=== PATIENT | female | born 1995 | race Native Hawaiian/Other Pacific Islander ===

== ENCOUNTER 2019-06-13 06:14 | Inpatient (IN) | payer OTHER ==
[~2019-06-13] VITALS: Ht 165.1 cm; Wt 115.3 kg
[2019-06-13] VITALS (77 sets, daily range): BP systolic 94–193; BP diastolic 47–99
[2019-06-13] MEDS ORDERED: PRENTAB9 PO (06:29)
[2019-06-13] MEDS ORDERED: LR 1,000 ML IV SCH ×2 (07:00→22:13)
[2019-06-13] MEDS ORDERED: LACTATED RINGER'S 1000 ML IV STA (07:00)
[2019-06-13 07:17] LABS: HEMATOCRIT 38.3 % (36.0-47.0); HEMOGLOBIN 12.9 g/dl (12.0-15.5); MEAN CORPUSCULAR HEMOGLOBIN 27.7 pg (27.0-33.0); MEAN CORPUSCULAR HGB CONC 33.7 g/dl (32.0-36.5); MEAN CORPUSCULAR VOLUME 82.4 fl (80.0-96.0); PLATELET COUNT, AUTOMATED 286 10^3/uL (150-450); RED BLOOD COUNT 4.65 10^6/uL (4.00-5.40); WHITE BLOOD COUNT 12.5 10^3/uL (4.0-10.0)
--- NOTE | 2019-06-13 07:33 | HPEPDOC ---
Obstetrical History & Physical General Date of Admission 06/13/19 Primary Care Physician: Ashlyn Sofia MD History of Present Illness Ob Considerations: Transfer from [facility] at 36 weeks Obesity BMI 37 23y/o G1 @ 39+3 wks by LMP c/w 1T US (ISABELLA [id number]) presents in labor. Patient endorses pink tinged vaginal discharge and painful contractions q2-3 minutes. She denies LOF and endorses active movement. 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: No pertinent history Past Medical History Medical History Denies Surgical History: Denies/None Family History Significant Family History: Cancer (Breast and uterine cancer), Diabetes, Heart disease, Hypertension Social History Marital Status: Family situation: Spouse/partner home Psychosocial History: No pertinent psych hx * Smoker: non-smoker Alcohol: Denies Drugs: denies Abuse Violence Screening Have you been hit/kicked/slapp: No Have you been sexually assault: No Imunizations Tdap status: current Influenza Status: needs Allergies Coded Allergies: No Known Allergies (Verified Allergy, Unknown, 06/13/19) Medications Scheduled No.137/Iron/Folic Acd ( Vitamin Tablet) 1 Each Tablet, 1 TAB PO DAILY Physical Examination Physical Examination GENERAL: Alert and oriented times three. BREAST: . ABDOMEN: Gravid and non-tender to touch. FETUS: Is vertex (VTX) by sterile vaginal examination (SVE), fetus is vertex (VTX) by Arpan. EFW 3800g HEART RATE: Regular rate and rhythm. LUNGS: Clear to auscultation (CTA). EXTREMITIES: No edema. Vital Signs/I&O Vital Signs Date Time Temp Pulse Resp B/P (MAP) Pulse Ox O2 Delivery O2 Flow Rate FiO2 06/13/19 06:49 71 153/97 (115) 06/13/19 06:37 97.8 Pertinent Laboratoy Data Blood Type: A+ RBC Antibody Screen: Negative HIV: Negative Hepatitis B: Negative Hepatitis C: Unknown Rapid Plasma Reagin: Nonreactive Rubella: Immune Varicella: Immune Chlamydia/Gonorrhea: Negative Group B Streptococcus: Negative Cystic Fibrosis: Negative Glucose Tolerance Test: 122 Other Ultrasounds Growth US [id number] EFW 2179g Posterior placenta, no previa. Steroid Therapy Steroid Therapy: No Vaginal Examination Dilation: 5 cm Effacement: 90% Station: -1 Cervical Consistency: Soft Cervical Position: Middle Presentation: Cephalic presentation Position: Vertex (occiput) Assessment Heart Rate (FHR): 135 Variability: Moderate Accelerations: Positive Decelerations: None Tocometer Contractions: Yes Frequency: regular, every 2-5 min. Duration: greater than 60 seconds Strength: palpated as moderate, palpated as strong Multi-drug resistant Organism: No history of MDRO Assessment/Plan Assessment 23-year-old (G)1 para (P)0 @ 39+3 wks by LMP c/w 9 wk US (ISABELLA [id number]) admitted for labor. EFW 3800g. Patient with Mild range Bps upon admission. Plan Admit and orient. Will collect CBC/CMP. No SANDOVAL/Visual changes/RUQ pain. Will continue to monitor blood pressures for the development of severe range BP/severe features. [employer] Agent and consent. Diet: Clears Group B Streptococcus (GBS) negative Labs and intravenous (IV) per unit protocol. Counseled on Pitocin and induction of labor (IOL). Lactated Ringers (LR): Bolus 1,000 mL, then at 125 mL/hr. Anticipate normal spontaneous delivery (). C-S as appropriate. Labor and Delivery Counseling Discussed with patient procedures that are performed on labor and delivery to in clude external monitoring, internal monitoring with FSE/IUPC. Discussed induction of labor with Pitocin and/or AROM. Discussed need for antibiotics for GBS positive, and addition of antibiotics if intramniotic infection is suspected. Discussed possible need for episiotomy and/or presence of tearing during delivery which would be repaired with absorbable sutures. Discussed bleeding with risk of blood transfusion, to include subsequent risks of HIV/Hepatitis and transfusion reaction. Discussed assisted vaginal delivery with vacuum or forceps. Additional risks include injury to baby, need for emergency , need for additional procedures as indicated. All questions answered to patient's apparent satisfaction. Ashlyn Sofia MD Jun 13, 2019 07:33
[2019-06-13 10:38] LABS: ALT/SGPT 11 U/L (12-78); BILIRUBIN,TOTAL 0.4 MG/DL (0.2-1.0); CREATININE FOR GFR 0.58 MG/DL (0.55-1.30); GLOMERULAR FILTRATION RATE > 60.0 (>60); LDH LACTATE DEHYDROGENASE 282 U/L (84-246); URIC ACID 6.3 MG/DL (2.6-6.0)
[2019-06-13] MEDS ORDERED: FENTANYL 2MCG/ML ROPIVACAINE 0.2% IN 0.9% NACL 100ML IVBAG As Ordered ONE (11:31)
[2019-06-13 11:55] LABS: CREATININE,RANDOM URINE 78.9 MG/DL; TOTAL PROTEIN,RANDOM URINE 68.7 MG/DL (0.0-12.0)
[2019-06-13] MEDS: FENTANYL/ROPIVACAINE/NACL BAG 100 ML EPIDURAL SCH ×2 (12:38→22:11)
[2019-06-13] MEDS ORDERED: ONDANSETRON 4MG/2ML VIAL (J2405) IV PRN (13:00)
[2019-06-13] MEDS ORDERED: EPIDURAL COMMENT XX SCH (13:00)
[2019-06-13] MEDS ORDERED: REFRIGERATOR IV KEYS XX PRN (13:00)
[2019-06-13] MEDS ORDERED: NALOXONE INJ 0.4 MG/1 ML VIAL (J2310) IV PRN (13:00)
[2019-06-13] MEDS ORDERED: diphenhydrAMINE INJ 50MG/ML VIAL (J1200) IV PRN (13:00)
[2019-06-13] MEDS ORDERED: ePHEDrine SULFATE 25 MG/5 ML(5MG/ML) SYRINGE IV PRN (13:00)
[2019-06-13] MEDS ORDERED: EPIDURAL/PCA KEYS XX PRN (13:00)
[2019-06-13] MEDS ORDERED: OXYTOCIN 30 UNITS IN 0.9% NaCl 500ML IV BAG (J2590) As Ordered ONE (14:18)
--- NOTE | 2019-06-13 19:59 | IPN ---
DATE: 06/13/2019 This is a 23-year-old 1 admitted at 39 and three with contractions. Her risk factors is her BMI is 37. She had an epidural in place and was having ineffective pain relief. She originally was 5 cm at 0600 hours, when checked at 1000 hours was still 5 cm, -3 station, and in the OP position. After adequate dosing and the epidural taking effect, we examined the patient. She had bulging membranes and appeared to be 9 cm, still in the OP position, and at -3 station. AROM was clear liquor. Category one strip. We did a protein-creatinine ratio and it was 0.87 and her uric acid was 6.3. We have been monitoring her blood pressure, once she had the appropriate cuff, blood pressures seemed to come down from midrange to normal values. Vital signs: She is running around 132/76, pulse of 92, not really in the severe range or midrange blood pressures. Our plan of management is to allow passive descent. Hopefully the epidural will maintain her comfortable in her level of pain control and we will reevaluate her in an hour's time. Safe to proceed. Does not require Pitocin.
[2019-06-13] MEDS ORDERED: OXYTOCIN DRIP 30 UNITS in IV 1 EA IV SCH (20:30)
--- NOTE | 2019-06-13 21:02 | IPN ---
DATE: 06/13/2019 This lady is a 23-year-old 1, para 0, and transferred in recently from [facility] at 36 weeks. She is presently at 39 and three. She came in with labor, rosa every 3 minutes, moderate intensity. She has a BMI of 37 and she has had slow progress over the course of her laboring. She eventually got an epidural which had to be dosed up in order for her to get adequate relief. She was at 9.5 cm, OP with some molding. She is presently, after 2 hours, in the LENNY position, -3, now fully dilated, still with molding. However, we do have a category one strip and she is still comfortable, presently still blood pressures range 140/90. No evidence of severe range blood pressures or midrange blood pressures. She was running 119/62, 118/63. Her most recent was 138/71, with a category one strip and she is laboring down. We are planning on checking her at 2000 hours to see if there is any significant progress. Presently we have her well hydrated. She has a peanut ball, change from side to side for position, and will reevaluate her in an hour and half's time.
--- NOTE | 2019-06-13 21:04 | IPN ---
DATE: 06/13/2019 23-year-old 1 who is now fully dilated and still in the LOT position, has good room posteriorly, but anteriorly baby has not come underneath the symphysis pubis. There is some molding and is not well applied. She does not feel any pressure or any urge to push. Contractions are adequate, moderate variability, no decelerations. Plan of management is to have her push for one hour to see if there is any movement. Failing to do that, we will discuss other options of delivery. It is safe to proceed at the present time. Blood pressures are still in the normalized range with no suggestion of midrange or severe range blood pressures.
[2019-06-13 22:08] LABS: CORD GAS ABE V -5.8; CORD GAS HCO3 V 21.3 MEQ/L; CORD GAS O2 SAT V 65.8 %; CORD GAS PCO2 V 47.2 mmHg; CORD GAS PH V 7.272 UNITS; CORD GAS PO2 V 31.2 mmHg; CORD GAS SBC V 19.1 MEQ/L; CORD GAS TCO2 V 22.7 MEQ/L
[2019-06-13 22:09] LABS: CORD GAS ABE A -4.5; CORD GAS HCO3 A 23.8 MEQ/L; CORD GAS O2 SAT A 34.6 %; CORD GAS PCO2 A 62.8 mmHg; CORD GAS PH A 7.196 UNITS; CORD GAS PO2 A 21.9 mmHg; CORD GAS SBC A 19.8 MEQ/L; CORD GAS TCO2 A 25.7 MEQ/L
[2019-06-13] MEDS ORDERED: MOM 30ML SUSPENSION UDC PO PRN (22:15)
[2019-06-13] MEDS ORDERED: DOCUSATE SODIUM 100 MG CAP PO PRN (22:15)
[2019-06-13] MEDS ORDERED: IBUPROFEN 600 MG TAB PO PRN (22:15)
[2019-06-13] MEDS ORDERED: METHYLERGONOVINE MALEATE 0.2 MG TAB PO PRN (22:15)
[2019-06-13] MEDS ORDERED: ANUSOL HC CREAM 30GM TOP PRN (22:15)
[2019-06-13] MEDS ORDERED: OXYTOCIN INJ 10 UNITS/ML VIAL (J2590) IV ONE (22:15)
[2019-06-13] MEDS ORDERED: OXYTOCIN DRIP 30 UNITS in IV 1 EA IV ONE (22:15)
[2019-06-13] MEDS ORDERED: DIBUCAINE 1% OINTMENT 30GM TOP PRN (22:15)
[2019-06-13] MEDS ORDERED: ACETAMINOPHEN TAB 650MG DOSE (2X325MG) PO PRN (22:15)
[2019-06-13] MEDS ORDERED: MEASLES,MUMPS,RUBELLA VACCINE INJ (MMR-II) (90707) SC SCH (22:15)
[2019-06-13] MEDS ORDERED: RHOGAM 300 MCG (1500 IU) INJ (J2790) IM SCH (22:15)
[2019-06-13] MEDS ORDERED: SLF 3 ML SYR IV PRN (22:30)
[2019-06-13] MEDS: IBUPROFEN 800 MG TAB PO PRN (22:55)
[2019-06-13] MEDS: ACETAMINOPHEN 500 MG TAB PO PRN (23:56)
[2019-06-14 00:40] VITALS: BP 135/74
[2019-06-14] MEDS ORDERED: OXYTOCIN INJ 10 UNITS/ML VIAL (J2590) As Ordered ONE (01:58)
[2019-06-14 06:05] VITALS: BP 122/73
[2019-06-14] MEDS: SLF 3 ML SYR IV SCH ×2 (06:16→13:44)
[2019-06-14 06:29] LABS: HEMATOCRIT 33.4 % (36.0-47.0); HEMOGLOBIN 11.3 g/dl (12.0-15.5); MEAN CORPUSCULAR HEMOGLOBIN 27.8 pg (27.0-33.0); MEAN CORPUSCULAR HGB CONC 33.8 g/dl (32.0-36.5); MEAN CORPUSCULAR VOLUME 82.3 fl (80.0-96.0); PLATELET COUNT, AUTOMATED 268 10^3/uL (150-450); RED BLOOD COUNT 4.06 10^6/uL (4.00-5.40); WHITE BLOOD COUNT 16.1 10^3/uL (4.0-10.0)
--- NOTE | 2019-06-14 08:23 | IPN ---
DATE: 06/14/2019 This lady is a 23-year-old, 1, now para 1, admitted at 39 and 3 weeks of gestation, spontaneous labor, with epidural in place, live female , spontaneous vaginal delivery, 7 pounds 14 ounces (3570 grams), score of 9, 9 at one and five minutes, respectfully. Arterial pH 7.19, base excess -4.5, venous pH 7.27, base excess of -5.8. She had a stellate tear in the vagina, lateral vaginal lacerations and midline laceration which was repaired the usual fashion. She was group B streptococcus (GBS) positive appropriately treated. This morning blood pressure 122/73, respirations 16, pulse 90, temperature 97.2. Park catheter was removed and she has already voided. Admitting hemoglobin 12.9, hematocrit 38.3, and platelets are 286. day #1 hemoglobin 11.3, hematocrit 33.4, and platelets are 268. We discussed phlebitis, cystitis, mastitis, endometritis, cellulitis, diet, exercise, pain management, perineal, breast and wound care. Rest of the examination unremarkable. Normocephalic, atraumatic. Neck full range of motion. Pupils equal and reactive to light. Distal pulses are symmetric. No evidence of deep venous thrombosis (DVT), pulmonary embolism (PE), or superficial phlebitis. Chest is clear bilateral to bases. No wheezes or rhonchi. No costovertebral angle (CVA) tenderness. Abdomen soft. Uterus 2 below. Lochia is moderate. Four quadrant bowel sounds are noted. Perineum is swollen but healing well. No rashes, lesions or pruritus. No arthralgia or myalgia. No complaint of joint pain. No complaint of cough, wheezes, shortness breath or dyspnea on exertion. She has no urgency or frequency. No nausea, vomiting, diarrhea or constipation. In summary, we have a term gestation delivered a live female . The patient is planning on breast-feeding, discharge for tomorrow, 6-week checkup and control will be discussed at that time. Patient doing well.
[2019-06-14] MEDS ORDERED: INFLUENZA QUADRIVALENT PF VACCINE 0.5ML SYRINGE (90686) IM ONE (09:00)
[2019-06-14] MEDS: IBUPROFEN 800 MG TAB PO PRN (09:37)
[2019-06-14] MEDS: PRENATAL VITAMINS CHEWABLE TABLET PO SCH (09:37)
--- NOTE | 2019-06-14 12:33 | IPN ---
DATE OF SERVICE: 06/13/2019 This lady is a 23-year-old 1, para 0 at 39 and 3 weeks of gestation by her last menstrual period (LMP). She came in in labor with some pink vaginal discharge and contractions that were painful. She was checked at 0600 hours on admission and found to be 5 cm. She is having some prolonged contractions. However, they are quite painful on examination presently. She still appears to be 5 cm. Head is not well applied to the cervix in the occipitoposterior (OP) position. It appears that the membranes are tight to the head. There has been no evidence of any bleeding. She has had intermittent midrange blood pressures throughout, and her complete blood count (CBC) shows 12.9, hematocrit 38.3, and platelets are 286. Her chemistry shows that her uric acid is 6.3. Liver enzymes are normal. Protein-creatinine ratio was not performed. She has because of her blood pressures, last one was 123/75, but she has been up to diastolics of 97 and 95 with contractions, and she also had a small cuff, and this was replaced by a large cuff, and the blood pressures have been reasonable and within the normal range. The patient at the present time is requesting an epidural. After hydration and anesthetic consult, we will check the cervix again. Possibly, if there is some amniotic fluid there with rupture of membranes and the possibility of using Pitocin. At the present time, her main concern is pain management.
[2019-06-14 18:12] VITALS: BP 135/80
[2019-06-14] MEDS: ACETAMINOPHEN 500 MG TAB PO PRN (23:12)
--- NOTE | 2019-06-15 07:33 | IPNPDOC ---
Text Note Date of Service The patient was seen on 06/15/19. NOTE patient is a 23 yo s/p ppd #2. Delivery complicated by stellate vaginal tear, repaired. today without concerns. she is breast feeding. undecided on contraceptive options. she is ambulating, urinating, tolerating po without problem. vitals: normal NAD abd: nd, soft, nt, fundus @ U-1 le: +edema, no erythema/tenderness a/p ppd #2, doing well. discussed oswaldo care, encourage bf. discussed contraceptive options. d/c home today. VS,Fishbone, I+O VS, Fishbone, I+O Vital Signs Date Time Temp Pulse Resp B/P (MAP) Pulse Ox O2 Delivery O2 Flow Rate FiO2 06/14/19 18:12 98.6 85 20 135/80 (98) 06/13/19 23:22 Room Air I&O- Last 24 Hours up to 6 AM 06/15/19 06:00 Output Total 350 ml Balance -350 ml JCARLOS LEVIN DO Jun 15, 2019 07:33
--- NOTE | 2019-06-15 07:34 | OBDS ---
[facility] Obstetrical Discharge Sum. Obstetrical Discharge Summary Manager Competitive Intelligence/Provider: JCARLOS LVEIN DO : 1 Term: 1 Pre-term: 0 Abortions: 0 Livin VDRL: Non-Reactive Rh: Positive Rubella: Immune Weight: pounds (7), ounces (14) Anesthesia: Regional Anesthesia A/P, Post Course List any complications Admission diagnosis: Labor at term (39+3wks) Discharge diagnosis: spontaneous vaginal delivery vaginal laceration repaired Condition at Discharge: stable Discharge Instructions: Home Activity: as tolerated Diet: regular Medications: filled at [facility] Follow-up: 1 week Patient admitted for labor at 39+3wks gestation. She progressed to have spontaneous vaginal delivery. Delivery complicated by stellate vaginal tear, repaired. course uncomplicated and patient meets discharge criteria on postparutm day #2. JCARLOS LEVIN DO Jun 14, 2019 19:45
[2019-06-15] MEDS: PRENATAL VITAMINS CHEWABLE TABLET PO SCH (09:05)
--- NOTE | 2019-06-15 16:47 | DN ---
DATE OF DELIVERY: 06/13/2019 HISTORY OF PRESENT ILLNESS: This is a 23-year-old 1 who was admitted in labor at 39-3 weeks of gestation. She had a prolonged first and second stage, had an epidural in place, had her require topping up several times to get adequate pain control was in the persistent occiput position (POP) position for a prolonged period of time. Eventually got fully dilated, descending by passive descent. She had a spontaneous vaginal delivery of a female infant with meconium seen after delivery, the baby weighing 7 pounds 14 ounces, 3570 grams. Apgars of 9 and 9 and 1 in five minutes respectively. Arterial pH 7.19, base excess -4.5, venous pH 7.27, base excess -5.8. The cord was around the ankle once and around the shoulder once very loose. The placenta spontaneously delivered with pushing. Three-vessel membranes and tissues intact. In reviewing the anatomy she had a stellate tear with delivery of the baby, vaginal tear up the right lateral wall, left and midline as well. The sphincter itself was intact and the perineum and body was intact. We did an extensive repair of the right and left side wall to the midline meeting at the fourchette using a 2-0 Vicryl on a J339. Good control of the uterus, well contracted under Pitocin, minimal bleeding. Sphincter was examined, found to be tight and the musculature was intact. She had a GBS positive that was treated prophylactically on time. SUMMARY: In summary at term gestation, delivered a live female infant. The patient and baby tolerated the procedure well. cc: NEUROLOGICAL SURGERY TEACHER Megha DEL VALLE
== END 2019-06-15 11:48 | disposition home or self-care (01) | DRG 807 ==
LOC: M LDO 06:14 → M LDI 07:16 → M OBS 06-14 06:42
PROVIDERS: ADMIT Obstetrics & Gynecology; ATTEND Obstetrics & Gynecology
PROC: 10E0XZZ Delivery of Products of Conception, External Approach (ICD-10-PCS; principal; 2019-06-13)
PROC: 0KQM0ZZ Repair Perineum Muscle, Open Approach (ICD-10-PCS; 2019-06-13)
PROC: 10907ZC Drainage of Amniotic Fluid, Therapeutic from Products of Conception, Via Natural or Artificial Opening (ICD-10-PCS; 2019-06-13)
DX: O99.214 Obesity complicating childbirth (principal); Z37.0 Single live birth; E66.9 Obesity, unspecified; Z3A.39 39 weeks gestation of pregnancy; O71.4 Obstetric high vaginal laceration alone; O99.824 Streptococcus B carrier state complicating childbirth